=== PATIENT | female | born 2000 | race Caucasian/White ===

== ENCOUNTER 2022-03-08 15:16 | Outpatient (CLI) | payer OTHER, BC, SELFPAY ==
[2022-03-08 18:04] LABS: Vitamin D 25 Hydroxy* 41 ng/mL (30-80)
[2022-03-08 20:43] LABS: Albumin* 4.6 g/dL (3.3-5.0)
[2022-03-08 20:44] LABS: Chloride* 102 mmol/L (96-114); Potassium* 4.3 mmol/L (3.6-5.1); Sodium* 137 mmol/L (135-149)
[2022-03-08 20:46] LABS: Aspartate Amino Transferase* 59 U/L (12-35); Bilirubin Total* 0.9 mg/dL (0.1-1.5); Carbon Dioxide* 24 mmol/L (20-32); Cholesterol* 149 mg/dL (90-199); Creatinine* 0.6 mg/dL (0.5-1.5); Total Protein* 7.1 g/dL (6.0-8.3)
[2022-03-08 20:47] LABS: Alanine Aminotransferase* 30 U/L (4-35); Alkaline Phosphatase* 42 U/L (40-150); Blood Urea Nitrogen* 23 mg/dL (5-24); Calcium* 9.3 mg/dL (8.4-10.6); Glucose* 85 mg/dL (60-115); HDL Cholesterol* 53 mg/dL (>=50); LDL Cholesterol Calculated 81 mg/dL (<100); Triglycerides* 76 mg/dL (40-149)
[2022-03-08 21:38] LABS: Vitamin B12* 590 pg/mL (243-894)
== END 2022-03-08 15:17 | disposition home or self-care (01) ==
PROVIDERS: Visit Provider Family Medicine
DX: Z00.00 Encounter for general adult medical examination without abnormal findings (principal); R53.83 Other fatigue; R04.0 Epistaxis; Z13.6 Encounter for screening for cardiovascular disorders; Z86.59 Personal history of other mental and behavioral disorders
CPT/HCPCS: 80053; 80061; 82306; 82607; 84443

== ENCOUNTER 2022-04-19 10:04 | Outpatient (CLI) | payer BC, SELFPAY ==
[2022-04-19 12:37] LABS: Chlamydia DNA Amplified* NOT DETECTED (No Detected); GC DNA Amplified* NOT DETECTED (No Detected)
== END 2022-04-19 10:05 | disposition home or self-care (01) ==
LOC: NFLDREF 10:17
PROVIDERS: Visit Provider Registered Nurse
DX: Z01.419 Encounter for gynecological examination (general) (routine) without abnormal findings (principal); Z11.3 Encounter for screening for infections with a predominantly sexual mode of transmission
CPT/HCPCS: 87491; 87591

== ENCOUNTER 2023-04-25 07:33 | Outpatient (CLI) | payer BC, SELFPAY | END 2023-04-25 07:34 | disposition home or self-care (01) | LOC: NFLDREF 04-27 06:08 | PROVIDERS: PCP Family Medicine; Referring Provider Family Medicine; Visit Provider Family Medicine | DX: Z01.419 Encounter for gynecological examination (general) (routine) without abnormal findings (principal); Z13.6 Encounter for screening for cardiovascular disorders | CPT/HCPCS: 80053; 80061 ==

== ENCOUNTER 2023-06-08 09:56 | Outpatient (REF) | payer BC, SELFPAY | END 2023-06-08 09:57 | disposition home or self-care (01) | LOC: NFLDREF 09:56 | PROVIDERS: PCP Family Medicine; Referring Provider Family Medicine; Visit Provider Advanced Practice Midwife | DX: B99.9 Unspecified infectious disease (principal) | CPT/HCPCS: 87491; 87591 ==

== ENCOUNTER 2023-06-14 11:15 | Outpatient (CLI) | payer BC, SELFPAY ==
--- NOTE | 2023-06-14 11:15 | CRLHL7_ITS ---
For Patients: As a result of the Century Cures Act, medical imaging exams and procedure reports are released immediately into your electronic medical record. You may view this report before your referring provider. If you have questions, please contact your health care provider. INDICATION: History of spontaneous miscarriage, possible uterine anomaly COMPARISON: none TECHNIQUE: 2D whitley scale and color Doppler images were acquired of the pelvis using a transabdominal and transvaginal approach. FINDINGS: There is a 1.5 cm external fundal indentation superiorly. The right uterine horn measures 8.9 x 3.2 x 3.5 cm and the left uterine horn measures 8.6 x 3.4 x 3.1 cm. No uterine fibroid. The myometrium has a normal uniform echotexture. The endometrial lining appears normal and measures 9 millimeters on the right and 9 millimeters on the left. The right ovary measures 4.6 x 2.6 x 2.3 cm in size and the left ovary measures 4.2 x 2.3 x 2.1 cm. The ovaries demonstrate normal arterial and venous blood flow on color Doppler analysis. Moderate pelvic free fluid. IMPRESSION: Probable bicornuate uterus. However, on ultrasound I cannot determine whether or not this is unicollis or bicollis. Pelvic MRI is suggested for further evaluation. Dictated by Wilfrido Lebron MD @ 06/18/2023 5:47:52 AM (Electronically Signed)
== END 2023-06-14 11:16 | disposition home or self-care (01) ==
LOC: US 11:15
PROVIDERS: PCP Family Medicine; Visit Provider Obstetrics & Gynecology
DX: T83.32XA Displacement of intrauterine contraceptive device, initial encounter (principal)
CPT/HCPCS: 76830; 76856

== ENCOUNTER 2023-07-04 14:13 | Outpatient (CLI) | payer BC, SELFPAY ==
[2023-07-04 23:24] LABS: Chlamydia DNA Amplified* NOT DETECTED (No Detected); GC DNA Amplified* NOT DETECTED (No Detected)
== END 2023-07-04 14:14 | disposition home or self-care (01) ==
LOC: NFLDUCREF 14:14
PROVIDERS: PCP Family Medicine; Visit Provider Nurse Practitioner Family
DX: N89.8 Other specified noninflammatory disorders of vagina (principal)
CPT/HCPCS: 87491; 87591

== ENCOUNTER 2023-10-15 07:05 | Outpatient (CLI) | payer BC, SELFPAY ==
--- NOTE | 2023-10-15 07:15 | MR_ITS ---
Patient: JACKSON LÓPEZ Facility:?[facility] Patient ID:?[id number] Site Patient ID:?[id number]. Site :?[id number] Study:?MRI-Pelvis UTERUS WO/W DOTAREM-10/15/2023 8:58:45 AM Ordering Physician:LILLIAM Final Report: INDICATION: Evaluate for bicornuate uterus. TECHNIQUE: Pelvic MRI with T1, T2, and postcontrast images. Intravenous gadolinium administered. Findings : Two separate uterine horns with an indentation in the myometrium between the horns. The separation extends to the cervix. The uterus is otherwise unremarkable. Normal appearance of the ovaries which contain scattered small follicles. No pelvic adenopathy. No other bony or soft tissue abnormalities identified. Impression : 1. Bicornuate uterus. Dictated by Chao Reyes MD @ 10/15/2023 2:12:11 PM Signed by:?Chao Reyes MD @10/15/2023 2:12:11 PM (Electronic Signature)
== END 2023-10-15 07:06 | disposition home or self-care (01) ==
LOC: MRI 07:06
PROVIDERS: PCP Family Medicine; Visit Provider Registered Nurse
DX: Q51.3 Bicornate uterus (principal)
CPT/HCPCS: 72197; A9575

== ENCOUNTER 2024-11-13 13:40 | Emergency (ER) | payer OTHER, BC, SELFPAY ==
[2024-11-13 13:46] VITALS: BP 131/77; PULSE 73; RESP 18; TEMP 36.7; O2SAT 99; BMI 24.2
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
== END 2024-11-13 15:54 | disposition home or self-care (01) ==
PROVIDERS: Emergency Provider Emergency Medicine Emergency Medical Services; PCP Family Medicine
DX: S16.1XXA Strain of muscle, fascia and tendon at neck level, initial encounter (principal); V43.62XA Car passenger injured in collision with other type car in traffic accident, initial encounter
CPT/HCPCS: 70450; 72125; 99283; 99284